=== PATIENT | female | born 1985 | race Caucasian/White ===

== ENCOUNTER → 2016-07-17 | Outpatient (CLI) | payer OTHER ==
[~2016-07-17] MED LIST: ASPCH81X PO; LORA-741 PO; PRENTAB26 PO; SERT100T PO
== END | disposition home or self-care (01) ==
LOC: C.LAB 09:29
PROVIDERS: ATTEND Obstetrics & Gynecology
DX: O09.299 Supervision of pregnancy with other poor reproductive or obstetric history, unspecified trimester (principal)

== ENCOUNTER → 2016-08-01 | Outpatient (CLI) | payer OTHER ==
[2016-08-01 18:58] LABS: URINE APPEARANCE CLEAR (CLEAR); URINE BILIRUBIN NEG (NEG); URINE COLOR YELLOW; URINE NITRITE NEG (NEG); URINE PH 7.5 (4.5-7.5); URINE SPECIFIC GRAVITY 1.021 (1.000-1.030); UROBILINOGEN NEG (NEG)
[2016-08-01 19:11] LABS: MANUAL MICROSCOPIC REQUIRED? NO; REVIEW REQ? NO
== END | disposition home or self-care (01) ==
LOC: C.LAB 17:39
PROVIDERS: ATTEND Obstetrics & Gynecology
DX: R39.9 Unspecified symptoms and signs involving the genitourinary system (principal)

== ENCOUNTER → 2016-08-23 | Outpatient (CLI) | payer OTHER ==
[2016-08-26 23:54] LABS: CHLAMYDIA TRACH RNA*** NOT DETECTED (NOT DETECTED); GC (NEIS GONORRHOEAE)RNA** NOT DETECTED (NOT DETECTED)
== END | disposition home or self-care (01) ==
LOC: C.LABSPEC 17:47
PROVIDERS: ATTEND Obstetrics & Gynecology
DX: O09.41 Supervision of pregnancy with grand multiparity, first trimester (principal); Z3A.00 Weeks of gestation of pregnancy not specified

== ENCOUNTER → 2016-08-23 | Outpatient (CLI) | payer OTHER | END | disposition home or self-care (01) | LOC: C.PAPS 08:40 | PROVIDERS: ATTEND Obstetrics & Gynecology | DX: Z12.4 Encounter for screening for malignant neoplasm of cervix (principal); Z33.1 Pregnant state, incidental ==

== ENCOUNTER → 2016-10-14 | Outpatient (CLI) | payer OTHER ==
[2016-10-16 16:05] LABS: AFP CONCENTRATION 39.7 NG/ML; AFP MULTIPLE OF MEDIAN 1.16; AFPTS GESTATIONAL AGE 16.6 WEEKS; AFPTS INSULIN DEP DIABETIC? NO; AFPTS MATERNAL WT 156 LBS; ALPHA-FETOPROTEIN RACE CAUCASIAN=W; ESTRIOL MULTIPLE OF MEDIAN 1.11; HISTORY OF NTD NO; INHIBIN A 148 PG/ML; REPEAT SAMPLE? NO
== END | disposition home or self-care (01) ==
LOC: C.LAB1850 16:51
PROVIDERS: ATTEND Obstetrics & Gynecology
DX: O09.892 Supervision of other high risk pregnancies, second trimester (principal)

== ENCOUNTER → 2016-10-14 | Outpatient (CLI) | payer OTHER ==
[2016-10-14 10:42] LABS: GTGD 50 Grams
== END | disposition home or self-care (01) ==
LOC: C.LAB 08:19
PROVIDERS: ATTEND Obstetrics & Gynecology
DX: O26.20 Pregnancy care for patient with recurrent pregnancy loss, unspecified trimester (principal)

== ENCOUNTER → 2016-10-18 | Outpatient (CLI) | payer OTHER ==
[2016-10-18 11:49] LABS: URINE APPEARANCE CLEAR (CLEAR); URINE BILIRUBIN NEG (NEG); URINE COLOR YELLOW; URINE NITRITE NEG (NEG); URINE SPECIFIC GRAVITY 1.024 (1.000-1.030); UROBILINOGEN NEG (NEG)
[2016-10-18 11:56] LABS: MANUAL MICROSCOPIC REQUIRED? NO; REVIEW REQ? NO
== END | disposition home or self-care (01) ==
LOC: C.LAB 09:51
PROVIDERS: ATTEND Obstetrics & Gynecology
DX: R39.9 Unspecified symptoms and signs involving the genitourinary system (principal)

== ENCOUNTER → 2016-10-24 | Outpatient (CLI) | payer OTHER ==
--- NOTE | 2016-10-24 16:26 | DIAGNOSTIC IMAGING REPORT ---
VENOUS DOPP LOWER EXT UNILAT CLINICAL HISTORY: M79.89 Right leg [id number] pain. Edema TECHNIQUE: Ultrasound COMPARISON STUDY: None FINDINGS: Normal study IMPRESSION: Normal study Electronically signed by: Jared Nam M.D. 10/24/2016 4:25 PM Dictated Date/Time: 10/24/2016 4:22 PM
== END | disposition home or self-care (01) ==
LOC: C.ULTR 15:26
PROVIDERS: ATTEND Obstetrics & Gynecology
DX: M79.89 Other specified soft tissue disorders (principal)

== ENCOUNTER → 2017-01-07 | Outpatient (CLI) | payer OTHER ==
[2017-01-07 10:17] LABS: GTGD 50 Grams
== END | disposition home or self-care (01) ==
LOC: C.LAB1850 08:29
PROVIDERS: ATTEND Obstetrics & Gynecology
DX: O09.43 Supervision of pregnancy with grand multiparity, third trimester (principal); Z3A.00 Weeks of gestation of pregnancy not specified

== ENCOUNTER 2017-01-28 22:40 | Outpatient (CLI) | payer OTHER ==
[~2017-01-28] VITALS: Ht 165.1 cm; Wt 83.0 kg
[~2017-01-28 22:40] MED LIST changes: -ASPCH81X PO; -PRENTAB26 PO
[2017-01-28 23:15] VITALS: Ht 165.1 cm; Wt 83.0 kg
[2017-01-28] MEDS ORDERED: PRENTAB26 PO (23:15)
[2017-01-28] MEDS ORDERED: ASPCH81X PO (23:15)
== END 2017-01-29 00:40 | disposition home or self-care (01) ==
LOC: C.OPB 22:40 → C.LD 22:40 → C.OPB 01-29 00:40
PROVIDERS: ATTEND Obstetrics & Gynecology
DX: O62.9 Abnormality of forces of labor, unspecified (principal); Z3A.31 31 weeks gestation of pregnancy

== ENCOUNTER → 2017-02-18 | Outpatient (CLI) | payer OTHER ==
[~2017-02-18] MED LIST changes: +ASPCH81X PO; -LORA-741 PO; +PRENTAB26 PO; -SERT100T PO
[2017-02-18 15:37] LABS: BASO % 0.4 %; BASO ABS # 0.04 K/uL (0-0.2); COMPLETE YES; EOS % 0.5 %; HEMATOCRIT 36.2 % (37-47); IG% 0.4 %; LYMPH % 17.3 %; LYMPH ABS # 1.91 K/uL (1.2-3.4); MEAN CELL VOLUME 85.6 fL (80-100); MEAN CORPUSCULAR HEMOGLOBIN 29.1 pg (25-34); MONO % 8.3 %; NEUT % 73.1 %; PLATELET COUNT 318 K/uL (130-400); RED BLOOD COUNT 4.23 M/uL (4.2-5.4); WHITE BLOOD COUNT 11.07 K/uL (4.8-10.8)
[2017-02-18 16:13] LABS: ALT/SGPT 20 U/L (12-78); AST/SGOT 19 U/L (15-37); CREATININE 0.72 mg/dl (0.60-1.20)
== END | disposition home or self-care (01) ==
LOC: C.LAB1850 13:57
PROVIDERS: ATTEND Obstetrics & Gynecology
DX: O09.43 Supervision of pregnancy with grand multiparity, third trimester (principal)

== ENCOUNTER 2017-03-04 15:42 | Inpatient (IN) | payer OTHER ==
[~2017-03-04] VITALS: Ht 165.1 cm; Wt 90.0 kg
[2017-03-04 16:04] VITALS: Ht 165.1 cm; Wt 90.0 kg
[2017-03-04 16:44] LABS: BASO % 0.2 %; BASO ABS # 0.02 K/uL (0-0.2); COMPLETE YES; HEMATOCRIT 35.5 % (37-47); IG% 0.3 %; LYMPH % 15.7 %; LYMPH ABS # 1.41 K/uL (1.2-3.4); MEAN CELL VOLUME 84.5 fL (80-100); MEAN CORPUSCULAR HEMOGLOBIN 28.6 pg (25-34); MEAN CORPUSCULAR HGB CONC 33.8 g/dl (32-36); MEAN PLATELET VOLUME 10.3 fL (7.4-10.4); MONO % 8.7 %; NEUT % 74.1 %; PLATELET COUNT 298 K/uL (130-400); WHITE BLOOD COUNT 8.96 K/uL (4.8-10.8)
[2017-03-04 17:28] LABS: CREATININE 0.87 mg/dl (0.60-1.20); URIC ACID 7.2 mg/dl (2.6-7.2)
[2017-03-04 18:40] LABS: URINE PROTIEN/CREAT RATIO 0.1 (0-0.2); URINE TOTAL PROTEIN 19.2 mg/dl (0-11.9)
[2017-03-04] MEDS ORDERED: OXYTOCIN 30 UNITS/500ML NSS IV PRN (19:30)
[2017-03-04] MEDS ORDERED: CEFAZOLIN IV 2,000 MG in SYRINGE 0 ML IV ONE (19:30)
[2017-03-04] MEDS ORDERED: LACTATED RINGER'S 1000ML 500 ML IV PRN (19:30)
[2017-03-04] MEDS ORDERED: CEFAZOLIN IV 1,000 MG in SYRINGE 0 ML IV PRN (19:30)
[2017-03-04] MEDS ORDERED: MAGNESIUM SULFATE / WTR 1,000 ML IV ONE (19:30)
[2017-03-04] MEDS ORDERED: WTR IV ONE (19:45)
[2017-03-04] MEDS ORDERED: MAGNESIUM SULFATE IV ONE (19:45)
[2017-03-04] MEDS: LACTATED RINGER'S 1000ML 1,000 ML IV SCH (19:59)
[2017-03-04] MEDS: MAGNESIUM SULFATE 40GM / WTR 1000 ML IV SCH (20:59)
[2017-03-05] MEDS ORDERED: ACETAMINOPHEN 325 MG TAB ONE (02:23)
[2017-03-05] MEDS ORDERED: NURSING VERBAL MED ORDER ONE (02:30)
[2017-03-05] MEDS ORDERED: CEFAZOLIN IV 2,000 MG in SYRINGE 0 ML IV ONE (08:00)
[2017-03-05] MEDS: LACTATED RINGER'S 1000ML 1,000 ML IV SCH ×2 (08:49→17:37)
[2017-03-05] MEDS ORDERED: ACETAMINOPHEN 325 MG TAB PO PRN ×2 (11:00→21:45)
[2017-03-05 13:59] LABS: MEAN CELL VOLUME 84.6 fL (80-100); MEAN CORPUSCULAR HGB CONC 34.2 g/dl (32-36); MEAN PLATELET VOLUME 10.4 fL (7.4-10.4); PLATELET COUNT 301 K/uL (130-400); RED BLOOD COUNT 4.49 M/uL (4.2-5.4); WHITE BLOOD COUNT 11.31 K/uL (4.8-10.8)
[2017-03-05] MEDS: MAGNESIUM SULFATE 40GM / WTR 1000 ML IV SCH (15:52)
[2017-03-05] MEDS ORDERED: FENTANYL 2MCG/ML ROPIV 1.25MG/ML 100ML BAG EPI ONE (16:41)
[2017-03-05] MEDS ORDERED: BUPIVACAINE 0.25% 30 ML VIAL ONE (16:41)
[2017-03-05] MEDS ORDERED: FENTANYL CITRATE INJ 50 MCG/1 ML 2 ML VIAL ONE (16:41)
[2017-03-05] MEDS ORDERED: EpHEDrine SULFATE INJ 50 MG/ML AMP ONE (16:41)
[2017-03-05] MEDS ORDERED: LACTATED RINGER'S 1000ML 500 ML IV PRN ×2 (17:04→18:19)
[2017-03-05] MEDS ORDERED: NALOXONE HCL INJ 1 MG in SODIUM CHLORIDE 0.9% 1000ML 1,000 ML IV PRN ×2 (17:04→18:19)
[2017-03-05] MEDS ORDERED: NALBUPHINE HCL INJ 10 MG/ML AMP IV PRN ×2 (17:15→18:30)
[2017-03-05] MEDS ORDERED: FENTANYL 2MCG/ML ROPIV 1.25MG/ML 100ML BAG EPI PRN ×2 (17:15→18:30)
[2017-03-05] MEDS ORDERED: ONDANSETRON INJ 2 MG/ML 2 ML VIAL IV PRN ×2 (17:15→18:30)
[2017-03-05] MEDS ORDERED: EpHEDrine SULFATE INJ 50 MG/ML AMP IV PRN ×2 (17:15→18:30)
[2017-03-05] MEDS ORDERED: NALOXONE HCL INJ 0.4 MG/1 ML VIAL/CARP IV PRN ×2 (17:15→18:30)
[2017-03-05] MEDS ORDERED: DiphenhydrAMINE HCL 50 MG/ML VIAL IV PRN ×2 (17:15→18:30)
[2017-03-05] MEDS ORDERED: PROMETHAZINE HCL INJ 25 MG in SODIUM CHLORIDE 0.9% 50ML 50 ML IV PRN (17:15)
[2017-03-05] MEDS ORDERED: PROMETHAZINE HCL INJ 6.25 MG in SODIUM CHLORIDE 0.9% 50ML 50 ML IV PRN (18:30)
[2017-03-05] MEDS ORDERED: OXYTOCIN 30 UNITS/500ML NSS IV PRN (21:45)
[2017-03-05] MEDS ORDERED: OXYCODONE/ACETAMINOPHEN 5-325 TAB PO PRN (21:45)
[2017-03-05] MEDS ORDERED: MEASLES, MUMPS & RUBELLA VIRUS VIAL SQ. ONE (21:45)
[2017-03-05] MEDS ORDERED: BENZOCAINE 20% AER SPR 82.5 GM CAN EXT PRN (21:45)
[2017-03-05] MEDS ORDERED: HYDROCORTISONE ACETATE 25 MG SUPP PR PRN (21:45)
[2017-03-05] MEDS ORDERED: SUPERCREAM 0.870 % 15GM JAR EXT PRN (21:45)
[2017-03-05] MEDS ORDERED: LANOLIN OINT EXT PRN ×2 (21:45)
[2017-03-05] MEDS ORDERED: DIPHTHERIA/TETANUS/PERTUSSIS 0.5 ML SYR/VIAL IM. ONE (21:45)
--- NOTE | 2017-03-05 21:59 | Anesthesia Procedure Note ---
Anesthesia Epidural Removal Nt Date & Time Mar 05, 2017 at 21:59 Vital Signs Pain Intensity: 0.0 Notes Mental Status: alert / awake / arousable, participated in evaluation Nausea / Vomiting: adequately controlled Pain: adequately controlled Airway Patency, RR, SpO2: stable & adequate BP & HR: stable & adequate Hydration State: stable & adequate Neuraxial Anesthesia: was administered Anesthetic Complications: no major complications apparent, pt satisfied with anesthetic care Epidural: removed without complications, with tip intact
--- NOTE | 2017-03-05 22:27 | DELIVERY SUMMARY ---
DATE OF OPERATION: 03/04/2017 PREOPERATIVE DIAGNOSES: 1. Intrauterine at 36-6/7 weeks. 2. Chronic hypertension with superimposed severe hypertension. POSTOPERATIVE DIAGNOSES: 1. Intrauterine at 36-6/7 weeks. 2. Chronic hypertension with superimposed severe hypertension. 3. Terminal bradycardia. PROCEDURE: 1. Britton bulb for cervical ripening. 2. Pitocin augmentation. 3. Epidural anesthesia. 4. Amniotomy for clear fluid. 5. Vacuum-assisted vaginal delivery. 5. Second-degree perineal laceration and left labial laceration with repair. ANESTHESIA: Epidural. ESTIMATED BLOOD LOSS: 400 mL. DESCRIPTION OF PROCEDURE: The patient was admitted to labor and delivery after having been discovered to have severe blood pressures in the office. Given the severe nature of these blood pressures, magnesium sulfate was started for prophylaxis. It was decided that we will proceed with induction. She underwent a Britton bulb catheter for cervical ripening and the next morning was 3, 50%, -2. The patient progressed slowly, underwent an amniotomy for clear fluid. When she was uncomfortable she underwent an epidural anesthesia. She got Pitocin augmentation and slowly progressed to complete complete and +1 station. She had a severe need to push and so began pushing. heart tones prior to pushing were in the 110s with pushing went to the 90s and after 3 or 4 pushes with good effort, the heart tones dropped into the 60s to 70s. This did not return to baseline or have a response to scalp stim after stimulation so the decision was made to proceed with vacuum assist. The patient was verbally consented. Baby was in EMIGDIO presentation and station was +2 to +3 with application of the vacuum. The vacuum was applied over the contraction with a push. The suction was no greater than 50 mmHg and over 1 popoff and 2 pushes with the same contraction, the vertex was delivered and then the rest of the baby was delivered easily. There was no nuchal cord but there was a short cord. There was immediate cry. The nose and mouth were bulb suctioned. The cord was clamped and cut. The infant was placed on the maternal abdomen for drawing an attention. Cord blood and gas were obtained. Placenta was delivered spontaneously intact with a 3-vessel cord. Cervix, sulci and rectum were examined and found to be intact. A second-degree perineal laceration was repaired with 3-0 Vicryl and left labial laceration was repaired with 4-0 Vicryl in standard fashion. Hemostasis was obtained with dilute Pitocin and fundal massage. Apgars were 8 and 9. Mother doing well at the end of the delivery. Baby needed to be transferred to the nursery for temperature issues. I attest to the content of the Intraoperative Record and any orders documented therein. Any exception s are noted below.
[2017-03-06] VITALS (7 sets, daily range): BP systolic 127–155; BP diastolic 81–96; PULSE 66–91; TEMP 36.6–36.8; O2SAT 96–98
--- NOTE | 2017-03-06 06:36 | OB/GYN Progress Note ---
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 Subjective conversation w/ patient, physical exam, chart review, lab review Ambulation: limited ambulation Voiding: mejía catheter in place Diet Tolerance: Regular Diet Lochia: Small Feeding Type: Breast Feeding Pain: mild pain Review of Systems Constitutional: No fever, No chills Respiratory: No shortness of breath Cardiac: No chest pain Abdomen: No nausea, No vomiting Female : No dysuria Objective Physical Exam General Appearance: WELL-APPEARING Respiratory/Chest: lungs clear, normal breath sounds Cardiovascular: regular rate, rhythm Abdomen: normal bowel sounds, non tender, soft Fundus: Firm, Relation to Umbilicus (2 Fb below) Extremities: non-tender, + pedal edema (1+) Laboratory Results Last 24 Hours Test 03/05/17 13:53 03/06/17 06:29 White Blood Count 11.31 K/uL Red Blood Count 4.49 M/uL Hemoglobin 13.0 g/dL Hematocrit 38.0 % Mean Corpuscular Volume 84.6 fL Mean Corpuscular Hemoglobin 29.0 pg Mean Corpuscular Hemoglobin Concent 34.2 g/dl RDW Standard Deviation 40.4 fL RDW Coefficient of Variation 13.3 % Platelet Count 301 K/uL Mean Platelet Volume 10.4 fL Assessment and Plan Day Number: 1 Continue Routine Care: A/P: This is a 31 y/o female, , s/p normal vaginal delivery w/t vacuum assistance day 1 complicated by severe hypertension. She has not been able to walk to the bathroom and still has a mejía but otherwise doing well. Plan: - Vitals signs are reviewed and WNL (Tmax 36.6 ) - Last Hgb is 13. This AM pending - Blood type O+, GBS not done, Rubella equivocal - Routine care - Encourage ambulation, monitor and control pain with medication as needed, continue with regular diet as tolerated and monitor lochia - Stool softeners and sitz bath recommended - Encourage breast feeding and educate about breast feeding Resident Physician Supervision Note: I interviewed and examined the patient. Discussed with Dr. Dr. Jovel and agree with findings and plan as documented in the note. Any exceptions or clarifications are listed here: Bps have been better, but still slightly elevated. diastolics i 90s. no s/s of pet. Monitor bps closely today. o/w nl pnc. Documented By: Michelle Matos Resident Involvement: Resident Care Provided Care Provided: OB Delivery
[2017-03-06] MEDS: IBUPROFEN 600 MG TAB PO PRN ×3 (06:40→20:17)
[2017-03-06 07:31] LABS: HEMATOCRIT 34.5 % (37-47)
[2017-03-06] MEDS: PRENATAL VITAMIN TAB PO SCH (08:08)
[2017-03-06] MEDS: DOCUSATE SODIUM 100 MG CAP PO SCH ×2 (08:08→20:11)
[2017-03-07 04:25] VITALS: BP 131/82; PULSE 91; TEMP 37; O2SAT 96
--- NOTE | 2017-03-07 06:01 | Discharge Instructions ---
Discharge Instructions Date of Service Mar 07, 2017. Admission Reason for Admission: Severe Preeclampsia Discharge Discharge Diagnosis / Problem: after vaginal delivery Discharge Goals Goal(s): Routine recovery after delivery Medications Continue Dispensed Medications: supercream, dermaplast, tucks, lansinoh Activity Recommendations Activity Limitations: per Instructions/Follow-up section . Instructions / Follow-Up Instructions / Follow-Up ACTIVITY RECOMMENDATIONS: * Gradual return to full activity over the next 2-3 weeks. * No lifting - nothing heavier than baby over the next 2-3 weeks. * Do not engage in vigorous exercise, sexual activity or sports until cleared by your physician. * Do not drive or operate any motorized equipment until cleared by your physician. * You may shower/bathe daily. MEDICATIONS: For discomfort or pain, you may use Acetaminophen (Tylenol), Ibuprofen (Advil), or Naproxen (Aleve) following the package directions. For constipation you may use Colace following the package directions. BREAST CARE: If you are not breast feeding: * Wear a supportive bra 24 hours a day for one to two weeks. * Avoid stimulating your breasts and nipples as much as possible during the first few weeks after delivery. * When taking a shower, have the warm water hit your back, not breasts. * When your breasts feel full, apply ice packs. Usually three to four times a day helps ease the discomfort. * Take a mild pain medication (Tylenol / Motrin) when you are uncomfortable. If breast feeding: * Use breast milk to lubricate nipples. Lansinoh cream may be used for sore nipples. You do not need to remove cream prior to breast feeding. If using a different brand of cream, check the label for directions regarding removal of cream prior to nursing. * Wear a supportive bra. * If having problems with breasts or breast feeding, call a home service consultant or your health care provider. EPISIOTOMY CARE: After delivery, if you have an episiotomy (stitches), the following steps will ease discomfort and aid healing. * For the first 24 hours after delivery, place ice packs next to your episiotomy to help reduce swelling. * After the first 24 hour-period, sitz baths, either portable or in the tub, are suggested. A shower with a shower arm sprayed over the episiotomy may be comforting. * Carla care should be done after each voiding and bowel movement. Squirt warm water from a plastic bottle over the perineum (region of the body between the anus and urinary opening) and pat dry. * Use Dermoplast to ease discomfort. Shake container. [place] directly over the episiotomy. Place a Tucks on a clean sanitary pad next to your episiotomy. SPECIAL CARE INSTRUCTIONS: When you are discharged from the hospital, it is important for you to follow the instructions listed below: * During the first week at home, you should be able to care for yourself and your baby. In addition, the usual light household activities are encouraged. * Limit your activities to the way you feel. Do not try to clean the house or move furniture. Be sensible. * If you actively engage in sports and have done so up until the time of your delivery, you may resume these activities as soon as you feel able. This may take up to one month or even longer. Use good judgment. * Continue to take your vitamins for at least six weeks after the of your baby. * Your diet need not be limited unless you were on a special diet before your delivery. Breast-feeding mothers need around 2500 calories per day and at least 64-80 ounces of fluid per day (8 to 10 glasses). * You should eat foods from the four major food groups. Crash diets or fad diets are to be avoided. Eating lean meats, fresh fruits and vegetables, low-fat dairy products, high fiber foods and a regular exercise program, will help you get back to your pre- weight without putting your health at risk. * Constipation is sometimes a problem after delivery. Take a mild laxative as needed. If breast feeding, Milk of Magnesia is acceptable to use. You may use a suppository or Fleets enema if no episiotomy. * A daily shower or tub bath is suggested. Be sure to thoroughly and gently dry the perineum. * A bloody vaginal discharge will usually continue until around four weeks post . A small amount of bleeding may continue for as long as six weeks. Vaginal discharge changes from the bright red bleeding after delivery to pink then brownish and finally yellowish-pink before becoming white and disappearing. * Bleeding may increase with activity. Your first period may come in 4-8 weeks. If you are breast feeding, your period may be delayed even longer. * [place] (sex) can begin whenever both you and your partner feel comfortable and do not have any form of genital infection. It is recommended that you wait at least six weeks for internal and external healing to occur. If you have questions, please talk to your health care practitioner. A condom should be used to prevent infection and . * Foreplay, gentle intercourse and lubrication is very important the first several times to prevent pain. A water-based lubricant such as K-Y jelly or Astroglide may be used. * If you have RH negative blood and your baby is RH positive, you will receive RHOGAM by injection prior to discharge. The nurse will give you a card to keep with you that has the date and place that you received RHOGAM after delivery. * During your care, you had a Rubella screen done to check for the presence of rubella antibodies in your blood. If your test was negative, you will receive a Rubella vaccine prior to discharge. This vaccine may cause a fever, soreness at the injection site and flu-like symptoms. If these symptoms persist, notify your health care practitioner. is not advised for one month after a Rubella vaccine. * Verbalizes understanding of car seat law as reviewed with patient nursing. * Car Seat hand-out given and reviewed with patient by nursing. * Shaken baby information reviewed with patient by nursing. Call you doctor if: * Heavy bleeding (saturating several pads an hour) or passing clots the size of your fist. * A fever >101 degrees F (38.3 degrees C) on two occasions four hours apart and /or chills. * Unusual pain in the pelvic or vaginal areas. * "Baby Blues" lasting longer than two weeks. If you have any questions or concerns, call your health care practitioner at . FOLLOW UP VISIT: * Please call the office at to schedule a 6 week examination. It is important you keep this appointment. It is important for you to make arrangements for either yearly or twice yearly check-ups thereafter. Current Hospital Diet Patient's current hospital diet: Regular OB Diet Discharge Diet Recommended Diet: Regular Diet Pending Studies Studies pending at discharge: no Medical Emergencies . Who to Call and When: Medical Emergencies: If at any time you feel your situation is an emergency, please call 911 immediately. . 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 . "Provider Documentation" section prepared by Elmira Jovel. . VTE Core Measure Inpt VTE Proph given/why not?: SCD's
[2017-03-07 08:00] VITALS: BP 160/90; PULSE 84; TEMP 36.7; O2SAT 98
[2017-03-07] MEDS: DOCUSATE SODIUM 100 MG CAP PO SCH (08:03)
[2017-03-07] MEDS: PRENATAL VITAMIN TAB PO SCH (08:03)
[2017-03-07] MEDS: IBUPROFEN 600 MG TAB PO PRN ×2 (08:04→16:14)
[2017-03-07 16:00] VITALS: BP 156/91; PULSE 71; TEMP 36.7
[2017-03-07 18:03] VITALS: BP_DIAS 91; PULSE 71; TEMP 36.7
== END 2017-03-07 18:04 | disposition home or self-care (01) | DRG 775 ==
LOC: C.LD 15:42 → C.OPB 15:42 → EEVIPCON 19:32 → C.LD 19:32 → C.OBG 03-06 09:54
PROVIDERS: ADMIT Obstetrics & Gynecology; ATTEND Obstetrics & Gynecology
PROC: 10D07Z6 Extraction of Products of Conception, Vacuum, Via Natural or Artificial Opening (ICD-10-PCS; principal; 2017-03-05)
PROC: 0KQM0ZZ Repair Perineum Muscle, Open Approach (ICD-10-PCS; principal; 2017-03-05)
DX: O16.4 Unspecified maternal hypertension, complicating childbirth (principal); Z3A.36 36 weeks gestation of pregnancy; Z37.0 Single live birth; O70.1 Second degree perineal laceration during delivery

== ENCOUNTER 2019-07-16 15:24 | Observation (INO) ==
[2019-07-16 16:23] LABS: Basophils # (auto) 0.04 K/uL (0-0.2); Basophils % (auto) 0.4 %; Eosinophils # (auto) 0.23 K/uL (0-0.5); Hematocrit (blood only) 32.9 % (37-47); Hemoglobin 10.9 g/dL (12.0-16.0); Immature Granulocytes # (auto) 0.07 K/uL (0.00-0.02); Immature Granulocytes % (auto) 0.6 %; Lymphocytes # (auto) 1.52 K/uL (1.2-3.4); Lymphocytes % (auto) 13.4 %; Mean Corpuscular Hemoglobin 27.5 pg (25-34); Mean Corpuscular Volume 82.9 fL (80-100); Mean Platelet Volume 9.4 fL (7.4-10.4); Monocytes # (auto) 1.01 K/uL (0.11-0.59); Monocytes % (auto) 8.9 %; Neutrophils # (auto) 8.44 K/uL (1.4-6.5); Neutrophils % (auto) 74.7 %; Platelet Count 362 K/uL (130-400); RDW Coefficient of Variation 13.5 % (11.5-14.5); RDW Standard Deviation 41.2 fL (36.4-46.3); Red Blood Count 3.97 M/uL (4.2-5.4); White Blood Count 11.31 K/uL (4.8-10.8)
[2019-07-16 16:26] LABS: Mean Corpuscular Hgb Conc 33.1 g/dL (32-36)
[2019-07-16 16:39] LABS: Alanine Aminotransferase 16 U/L (12-78); Albumin Level 2.6 gm/dl (3.4-5.0); Aspartate Aminotransferase 11 U/L (15-37); Bilirubin Direct < 0.1 mg/dl (0-0.2); Creatinine Clr Calc Pharmacy 130.5 ml/min; Est GFR (African American) 132.3; Est GFR (Non-African American) 114.1
[2019-07-16 16:41] LABS: Alkaline Phosphatase 214 U/L (45-117); Bilirubin,Total 0.2 mg/dl (0.2-1)
--- NOTE | 2019-07-16 16:57 | Obstetrical Progress Note ---
Date of Service July 16, 2019 Assessment & Plan (1) Supervision of normal intrauterine in multigravida: reactive nst (2) History of pre-eclampsia in prior , currently : BPs have been normal during observation. Labs are all normal. No s/s pet. Reviewed s/s. To call with changes. Keep appt on for evaluation. Subjective Patient is a with iup at 36 weeks who was at work today and just feeling poorly. Notes increased swelling. Notes feels more tired. Notes no n/v. Notes some generalized abdominal discomfort. Notes she has some floaters but has had for a couple of weeks. No vision loss. no n/v. +fm. No labor symptoms. Patient has a hx of pet in her two previous pregnancies and so was concerned might be happening. Review of Systems Review of Systems: All systems reviewed & are unremarkable except as noted in HPI & below Physical Exam Constitutional: WD/WN, vitals as above Neck: trachea midline, no thyromegaly Gastrointestinal (Abdomen): soft, nt, nd, gravid, slight ruq discomfort Neurologic: patellar DTR's 2+ bilat, sensation intact no clonus Genitourinary: cx--deferred toco--none efm--reactive nst Results & Data Vital Signs (Past 12 Hours) Vital Signs Temp Pulse Resp BP 07/16/19 16:49 20 07/16/19 16:43 82 109/63 07/16/19 16:30 18 07/16/19 16:28 89 108/62 07/16/19 15:47 36.6 C 20 07/16/19 15:38 91 H 122/84 PG Care Time/CCT Total # of Minutes Spent Total Time Spent with Patient: Total time spent is greater than 50% in coordination of care (as documented) at patient's floor/unit and/or counseling patient: Coding Level of Care Code 20463 Office/Outpt Visit, Est Diagnoses Supervision of normal intrauterine in multigravida Z34.80 History of pre-eclampsia in prior , currently O09.299 CPT Codes NST - 08070 ([id number])
--- NOTE | 2019-07-19 22:33 | Discharge Summary (DS) ---
HISTORY OF PRESENT ILLNESS: The patient is a 6, para 2 with an IUP at 36 weeks who was at work today and just feeling poorly. Notes increased swelling, feels more tired. Notes no nausea or vomiting. Notes some generalized abdominal discomfort. Notes she had some floaters, but has had for a couple weeks. No vision loss, no nausea, vomiting, positive movement, no labor symptoms. The patient has a history of preeclampsia in her 2 previous pregnancies and so she was concerned that this might be happening again. For the rest of the patient's detailed history, please see her obstetrical record. REVIEW OF SYSTEMS: Unremarkable. PHYSICAL EXAMINATION: CONSTITUTIONAL: Well-developed, well-nourished. VITAL SIGNS: As above. NECK: Supple without thyromegaly. GASTROINTESTINAL: Soft, gravid and nontender. Slight right upper quadrant discomfort. NEUROLOGIC: Shows patellar DTRs plus 2/2. No clonus. CERVIX: Deferred. Tocodynamometer shows none. EFM shows a reactive NST. ASSESSMENT: This is a at 36 weeks with a history of 2 previous pregnancies complicated by preeclampsia, who presents with signs and symptoms that might be consistent with. She was observed. Her blood pressures ranged from 122/84 to 108/62. She had laboratory work performed showing H and H 10.9 and 32.9, platelet count of 362,000. Creatinine of 0.68, AST and ALT which were normal. She was monitored for an hour. She had a category 1 strip with a reactive NST. She was not found to have preeclampsia and was discharged home. She has follow up in the office on Friday. KAREN
== END 2019-07-16 17:02 | disposition home or self-care (01) ==
LOC: 4S1 15:24 → OPB 15:24 → 4S1 15:25

== ENCOUNTER 2019-08-05 13:10 | Inpatient (IN) ==
[2019-08-05] MEDS ORDERED: OXYTOCIN 30 UNITS/500 ML BAG IV PRN ×2 (19:39→23:03)
--- NOTE | 2019-08-05 19:43 | History & Physical Report ---
Date of Service August 05, 2019 Assessment & Plan (1) 39 weeks gestation of : (2) Normal labor: has made some slow cervical change management specialist obs and contractions closer and much more painful. Likely early labor. Patient desires admission, epidural, arom. Fetus category one. Anticipate . History of Present Illness Chief Complaint: contractions Primary Care Provider: Joann Yeh DO Patient is a 33yowf with iup at 39 3/9 weeks who presents complaining of contractions. Patient notes over time of obs increasing in pain. no lof/vb. +FM hx of pet in a previous , induction x 2 for pih at term, on asa. labs--O+/ab-/[place]/rprnr/hiv-/hepb-/failed 28 wek gtt, nl 2 hr/gc/ct-/gbs neg/16 week gtt nl Allergies Allergy/AdvReac Type Severity Reaction Status Date / Time Penicillins Allergy Severe HIVES AND Verified 08/03/19 10:13 THROAT TIGHTENS Home Medications Home Medications Medication Instructions Recorded Confirmed Type prenat.vits,lety,jpe-[id number]-[id number] 1 tab PO DAILY 12/23/18 08/05/19 History aspirin 81 mg tablet,delayed 81 mg PO DAILY 06/01/19 08/05/19 History release Patient History Medical History Constipation Depression No chronic diseases present Severe preeclampsia (Resolved) UTI (urinary tract infection) Varicella Varicella vaccination Surgical History S/P dilatation and curettage Family History Sister Diabetes Thyroid disease Breast cancer Mother Diabetes Hypertension Osteoporosis Father Diabetes Heart disease Hypertension Liver disease Grandmother (Paternal) Breast cancer Social History Preferred Language: Arabic Communication Ability: Effective Beliefs That Will Affect Care: None marital status: Current Living Situation: Family Current Living Situation Comment: 11 yo daughter and 2 yo son current occupational status: employed 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[employer] Other Information That Helps Us Care for You: No Feels Safe at Home: Yes Safety Concerns: Feels Safe At This Time Smoking Status: Never smoker Do You Dip or Chew Tobacco: No ; Second Hand Exposure: No ; Tobacco Cessation Education Requested by Patient: No Hx Alcohol Use: No Hx Substance Use: No OB History g1--05/14, sab g2--05/15, blighted ovum g3--06/30--vavd, 39 weeks, 6#10oz, preeclampsia g4--11/17, sab g5--05/26, sab g6--02/25, vavd, 36 weeks, induction for pih [employer]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[employer] History noncontributory Review of Systems All systems reviewed & are unremarkable except as noted in HPI & below Physical Exam Constitutional: WD/WN, vitals as above Gastrointestinal (Abdomen): soft, gravid, nt Psychiatric: A+Ox3, euthymic affect Genitourinary: cx--3-4/80/-2 toco--q2-4min efm--135 with mod vairiablity, accels to 160s, no decels Results & Data Vital Signs (Past 12 Hours) Vital Signs Temp Pulse Resp BP 08/05/19 19:12 90 131/68 08/05/19 19:11 36.6 C 18 08/05/19 15:04 36.6 C 75 18 120/72 08/05/19 13:37 86 126/82 08/05/19 13:32 36.8 C 86 20 126/82 Code Status & VTE Plan VTE Prophylaxis Plan VTE Prophylaxis will be ordered: No Coding Level of Care Code None Diagnoses 39 weeks gestation of Z3A.39 Normal labor O80; Z37.9
[2019-08-05] MEDS: LACTATED RINGER'S 1,000 ML IV PRN ×2 (20:10→21:54)
[2019-08-05 20:13] LABS: Hemoglobin 12.4 g/dL (12.0-16.0); Mean Corpuscular Hemoglobin 27.3 pg (25-34); Mean Corpuscular Volume 81.5 fL (80-100); Mean Platelet Volume 9.4 fL (7.4-10.4); Platelet Count 408 K/uL (130-400); RDW Coefficient of Variation 13.8 % (11.5-14.5); RDW Standard Deviation 40.9 fL (36.4-46.3); Red Blood Count 4.54 M/uL (4.2-5.4); White Blood Count 15.16 K/uL (4.8-10.8)
[2019-08-05 20:16] LABS: Mean Corpuscular Hgb Conc 33.5 g/dL (32-36)
[2019-08-05] MEDS ORDERED: ePHEDrine sulfate 50 MG/ML AMP ONE (20:25)
[2019-08-05] MEDS ORDERED: fentaNYL citrate 100 MCG/2 ML VIAL ONE (20:26)
[2019-08-05] MEDS ORDERED: fentaNYL 2MCG/ML ROPIV 1.25MG/ML 100 ML BAG EPI ONE (20:26)
[2019-08-05] MEDS ORDERED: BUPIVACAINE 0.25% 30 ML VIAL ONE (20:26)
[2019-08-05] MEDS ORDERED: NALBUPHINE HCL INJ 10 MG/ML AMP IV PRN (21:25)
[2019-08-05] MEDS ORDERED: NALOXONE HCL 0.4 MG/1 ML VIAL/CARP IV PRN (21:25)
[2019-08-05] MEDS ORDERED: fentaNYL 2MCG/ML ROPIV 1.25MG/ML 100 ML BAG EPI PRN (21:25)
[2019-08-05] MEDS ORDERED: ONDANSETRON INJ 2 MG/ML 2 ML VIAL IV PRN (21:25)
[2019-08-05] MEDS ORDERED: NALOXONE HCL 1 MG in SODIUM CHLORIDE 0.9% 1000ML 1,000 ML IV PRN (21:25)
[2019-08-05] MEDS ORDERED: ePHEDrine sulfate 50 MG/ML AMP IV PRN (21:25)
[2019-08-05] MEDS ORDERED: PROMETHAZINE HCL 6.25 MG in SODIUM CHLORIDE 0.9% 50 ML IV PRN (21:25)
[2019-08-05] MEDS ORDERED: DiphenhydrAMINE HCL 50 MG/ML VIAL IV PRN (21:25)
--- NOTE | 2019-08-05 21:25 | Anesthesiology Consultation ---
Date of Service August 05, 2019 Assessment & Plan Chart Review Chart Review: Patient NOT seen in Pre Admission Testing and Acceptable Risk for Labor Epidural Consults Requested none ASA ASA2 Proposed Anesthesia Anesthesia Type: Labor Epidural Risk / Benefits Reviewed With: PT / POA / Parent / Guardian, Accepts Plan and Informed Consent Obtained History Height/Weight Height: 5 ft 4 in Weight: 96.162 kg Allergies Allergy/AdvReac Type Severity Reaction Status Date / Time Penicillins Allergy Severe HIVES AND Verified 08/03/19 10:13 THROAT TIGHTENS Medications Home Medications Medication Instructions Recorded Confirmed Last Taken prenat.vits,lety,[id number]-[id number]-pgxfz 1 tab PO DAILY 12/23/18 08/05/19 08/05/19 07:30 aspirin 81 mg tablet,delayed 81 mg PO DAILY 06/01/19 08/05/19 08/05/19 07:30 release Active Medications Generic Name Dose Route Start Last Admin Trade Name Freq PRN Reason Stop Dose Admin Lactated Ringer's 1,000 mls @ 125 mls/hr 08/05/19 19:39 08/05/19 21:15 Lr IV 08/07/19 19:38 999 mls/hr .Q8H PRN Infusion L&D Protocol Protocol NPO Date Last Intake of Fluids: 08/05/19 Time Last Intake of Fluids: 12:00 Date Last Intake of Solids: 08/05/19 Time Last Intake of Solids: 12:00 Past Medical History Medical History Constipation Depression No chronic diseases present Severe preeclampsia (Resolved) UTI (urinary tract infection) Varicella Varicella vaccination Exercise / Class Metabolic Activity II 4-5 Yardwork/Stairs/Walk up hill Past Family History Family History Sister Diabetes Thyroid disease Breast cancer Mother Diabetes Hypertension Osteoporosis Father Diabetes Heart disease Hypertension Liver disease Grandmother (Paternal) Breast cancer Past Surgical History Surgical History S/P dilatation and curettage Past Anesthesia History No Hx of Anesthesia Complications and No Family Hx of Anesthesia Complications History of PONV No Hx of PONV and No Hx of Motion Sickness Social History Smoking Status: Never smoker Do You Dip or Chew Tobacco: No Hx Alcohol Use: No Hx Substance Use: No substance use type: does not use Physical Exam Vital Signs Last Vital Signs Temp 36.6 C 08/05/19 19:11 Pulse 87 08/05/19 21:22 Resp 18 08/05/19 19:11 BP 112/65 08/05/19 21:22 Pulse Ox 98 08/05/19 21:22 ENMT Mouth: no dentition abnormality Thyromental Distance: > or= 3.5 Finger Breadths Mallampati Class: II Neck normal visual inspection Respiratory normal respiratory effort Auscultation: lungs clear to auscultation bilaterally Cardiovascular Rate/Rhythm: regular rate and regular rhythm Psychiatric Orientation: alert Testing Laboratory Results 08/05/19 20:02
--- NOTE | 2019-08-05 22:30 | Labor Progress Brief Note ---
Date of Service August 05, 2019 Subjective comfortable Assessment & Plan (1) Normal labor: arom and expectant mangement. fetus reassuring. anticipate . Physical Exam Constitutional: WD/WN, vitals as above Psychiatric: A+Ox3, euthymic affect Genitourinary: cx--4-5/90/-2 arom--clear toco--q2-4min efm--150s with mod variability, accels to 170s, no decels Results & Data Vital Signs (Past 12 Hours) Vital Signs Temp Pulse Resp BP Pulse Ox 08/05/19 22:25 97 H 128/83 08/05/19 22:22 92 H 97 08/05/19 22:17 95 H 98 08/05/19 22:12 110 H 97 08/05/19 22:09 105 H 110/70 08/05/19 22:07 94 H 97 08/05/19 22:02 94 H 99 08/05/19 21:57 95 H 97 08/05/19 21:55 88 18 115/75 08/05/19 21:52 105 H 99 08/05/19 21:50 109 H 18 116/72 08/05/19 21:47 107 H 97 08/05/19 21:45 110 H 18 120/76 08/05/19 21:42 78 99 08/05/19 21:40 80 20 122/72 08/05/19 21:37 81 99 08/05/19 21:36 92 H 118/69 08/05/19 21:35 18 08/05/19 21:32 87 99 08/05/19 21:30 94 H 116/70 08/05/19 21:29 18 08/05/19 21:27 105 H 97 08/05/19 21:24 94 H 18 121/71 08/05/19 21:22 87 18 112/65 98 08/05/19 21:20 78 18 128/65 08/05/19 21:18 65 16 91/50 L 08/05/19 21:17 64 98 08/05/19 21:16 69 16 94/53 L 08/05/19 21:14 72 16 91/53 L 92 08/05/19 21:12 108 H 18 116/59 L 99 08/05/19 21:10 107 H 16 125/58 L 08/05/19 21:08 93 H 16 118/60 08/05/19 21:07 92 H 99 08/05/19 21:05 89 138/71 08/05/19 21:02 86 100 08/05/19 20:57 88 100 08/05/19 20:52 88 99 08/05/19 19:12 90 131/68 08/05/19 19:11 36.6 C 18 08/05/19 15:04 36.6 C 75 18 120/72 08/05/19 13:37 86 126/82 08/05/19 13:32 36.8 C 86 20 126/82 Coding Level of Care Code None Diagnoses Normal labor O80; Z37.9
[2019-08-06] MEDS ORDERED: OXYTOCIN 30 UNITS/500 ML BAG IV PRN (00:52)
[2019-08-06] MEDS ORDERED: ACETAMINOPHEN 325 MG TAB PO PRN (00:52)
--- NOTE | 2019-08-06 00:56 | Delivery Summary ---
Vaginal Delivery Summary Date of Service August 06, 2019 Vaginal Delivery Summary Pre-operative Diagnosis: at 39 weeks labor Post-operative Diagnosis: same Procedure: epidural arom second degree laceration repair EBL: 350cc Anesthesia: epidural Procedure: The patient pushed for 3 contractions to deliver a viable female infant in tali position. The nose and mouth were bulb suctioned on the perineum and the rest of the infant was then delivered without difficulty. Nuchal cord x 1 reduced easily. The baby was vigorous. The nose and mouth were again bulb suctioned and the was placed in the maternal abdomen for drying and attention. Cord was clamped and cut at one minute of life. Cord blood and segment obtained. Placenta delivered spontaneous, intact with a three vessel cord. Cervix/sulci/rectum were intact. A second degree perineal laceration was repaired in the normal standard fashion. Hemostasis obtained with dilute pitocin and fundal massage. Apgars were 8/9. Mother and baby doing well at the end of the delivery. [facility] Vaginal Delivery Charge Vaginal Delivery Codes: 42217 global code for the antepartum, delivery, and post-
[2019-08-06] MEDS ORDERED: HYDROCORTISONE ACETATE 25 MG SUPP PR PRN (01:59)
[2019-08-06] MEDS ORDERED: DIPHTHERIA/TETANUS/PERTUSSIS 0.5 ML SYR/VIAL IM ONE (01:59)
[2019-08-06] MEDS ORDERED: bisacodyL 10 MG SUPP PR PRN (01:59)
[2019-08-06] MEDS ORDERED: BENZOCAINE 20% AER SPR 82.5 GM CAN EXT PRN (01:59)
[2019-08-06] MEDS ORDERED: OXYCODONE/ACETAMINOPHEN 5mg/325mg TAB PO PRN (01:59)
[2019-08-06] MEDS ORDERED: SUPERCREAM 0.870% 15 GM JAR EXT PRN (01:59)
--- NOTE | 2019-08-06 07:29 | Anesthesia Procedure Note ---
Date of Service August 06, 2019 Anesthesia Post Epidural Note Vital Signs Vital Signs: Temp Pulse Resp BP Pulse Ox 36.8 C 97 H 16 108/71 100 08/06/19 04:25 08/06/19 04:25 08/06/19 04:25 08/06/19 04:08/06/19 00:42 Pain Intensity Buttock: Pain Intensity: 2 Notes Mental Status: alert / awake / arousable and participated in evaluation Nausea / Vomiting: adequately controlled Pain: adequately controlled Airway Patency, RR, SpO2: stable & adequate BP & HR: stable & adequate Hydration State: stable & adequate Neuraxial Anesthesia: was administered and sensory block is resolving Anesthetic Complications: no major complications apparent and Pt Satisfied with anesthetic care Epidural: Removed without complications and With tip intact Notes: Epidural site clean, dry and intact. No signs of edema, erythema or bruising at insertion site. Pt instructed to request anesthesia if she has residual lower extremity numbness or if she develops lower extremity pain or weakness, back pain or headache.
[2019-08-06] MEDS: IBUPROFEN 600 MG TAB PO PRN ×3 (08:06→20:13)
[2019-08-06] MEDS: DOCUSATE SODIUM 100 MG CAP PO SCH ×2 (08:06→20:13)
[2019-08-06] MEDS: PRENATAL VITAMIN 1 TAB PO SCH (08:06)
[2019-08-07 06:42] LABS: Hematocrit (blood only) 33.1 % (37-47); Hemoglobin 10.8 g/dL (12.0-16.0)
--- NOTE | 2019-08-07 07:49 | Obstetrical Progress Note ---
Date of Service August 07, 2019 Assessment & Plan (1) Vaginal delivery: Wants d/c home today, instructions reviewed. Subjective Ambulation: ambulating normally Voiding: no voiding problems Passing Gas:: Yes Diet Tolerance:: regular diet Lochia:: Small Feeding Type:: breast feeding Physical Exam Constitutional WD/WN, vitals as above Eyes PERRL, conjunctivae normal, anicteric sclerae Neck normal visual inspection Respiratory normal respiratory effort and able to speak in complete sentences; no respiratory distress and no labored breathing Cardiovascular Rate/Rhythm: regular rate and regular rhythm Extremities: no edema Chest (Breasts) Chest: normal inspection of chest Gastrointestinal (Abdomen) Inspection/Auscultation: abdomen normal to inspection Soft, postgravid Psychiatric A+Ox3, euthymic affect Genitourinary OB Exam Abdomen: + fundal height Fundus: + firm and + relation to umbilicus (fundus just below umbilicus); not tender Results & Data Vital Signs (Past 12 Hours) Vital Signs Temp Pulse Resp BP 08/07/19 00:00 98.2 F 76 18 121/75 08/06/19 20:30 97.9 F 62 16 104/71
[2019-08-07] MEDS: PRENATAL VITAMIN 1 TAB PO SCH (07:56)
[2019-08-07] MEDS: DOCUSATE SODIUM 100 MG CAP PO SCH (07:56)
[2019-08-07] MEDS: IBUPROFEN 600 MG TAB PO PRN (07:56)
[2019-08-07] MEDS ORDERED: bisacodyL 5 MG TABEC PO SCH (20:00)
== END 2019-08-07 10:00 | disposition home or self-care (01) | DRG 807 ==
LOC: OPB 13:10 → 4S1 13:10 → 4S2 08-06 03:00

== ENCOUNTER 2022-02-21 07:38 | Inpatient (IN) ==
[2022-02-21] MEDS ORDERED: OXYTOCIN 30 UNITS/500 ML BAG IV PRN ×3 (07:50→22:07)
[2022-02-21] MEDS ORDERED: LIDOCAINE 1% LOCAL 20 ML VIAL INFIL PRN (07:50)
[2022-02-21 08:16] LABS: Hematocrit (blood only) 35.8 % (34.1-44.9); Hemoglobin 11.6 g/dl (12.0-16.0); Mean Corpuscular Hemoglobin 26.4 pg (25.0-34.0); Mean Corpuscular Hgb Conc 32.4 g/dL (32.0-36.0); Mean Corpuscular Volume 81.4 fL (80.0-100.0); Mean Platelet Volume 9.5 fL (9.4-12.3); Platelet Count 341 K/uL (130-400); RDW Coefficient of Variation 13.9 % (11.5-14.5); RDW Standard Deviation 40.6 fL (36.4-46.3); White Blood Count 9.75 K/ul (4.8-10.8)
[2022-02-21] MEDS ORDERED: SODIUM CHLORIDE 0.9% 250 ML IV PRN (08:58)
[2022-02-21] MEDS: LACTATED RINGER'S 1,000 ML IV PRN ×3 (09:22→19:13)
--- NOTE | 2022-02-21 10:22 | History & Physical Report ---
Date of Service February 21, 2022 Assessment & Plan (1) Supervision of elderly multigravida: Plan: Multiparous female at 39 weeks with request for IOL because of prior history of PIH cervical balloon attempted - even though it would not stay in place, there was some cervical change noted pitocing augmentation has begun epidural analgesia when requested anticipate vaginal Admission and Anticipated Discharge Date Admission Date: February 21, 2022 History of Present Illness Primary Care Provider: Esa Lundberg Patient is a 36 yo female [facility] 02/28/22 who presents at 39 weeks for IOL because of prior history of PIH with all 3 of her full term pregnancies. complicated by AMA. GBS-negative. testing has all been reassuring. Allergies Allergy/AdvReac Type Severity Reaction Status Date / Time Penicillins Allergy Severe Hives, Verified 02/20/22 15:20 throat tightening nickel Allergy Mild Itchiness, Verified 02/20/22 15:20 "sensitivity" with contact Home Medications Medication Instructions Recorded Confirmed Type prenat.vits,lety,hhq-[id number] 1 tab PO DAILY 07/26/21 02/21/22 History metoclopramide HCl 10 mg tablet 10 mg PO Q6H PRN nausea and 02/12/22 02/21/22 Rx (Reglan) vomiting #14 tabs acetaminophen 325 mg capsule 325 mg PO QID PRN Headache 02/21/22 02/21/22 History (Tylenol) Patient History Medical History Anxiety and depression Controlled Blighted ovum Depression Depressive disorder History of COVID-19 Covid positive 10/04/21 ([facility]; [facility] Now) Symptoms at time: joint pain, cough x weeks > resolved History of pre-eclampsia x2 Surgical History (Updated 02/21/22 @ 07:47 by Lydia Ceballos RN) History of anesthesia complications History of anesthesia reaction Anxious/crying with anesthesia emergence (2008)- D&C, versed used per pt No similar issues with other surgeries/anesthesia, Pt. states she had syncopal episode with epidurals x2 S/P dilatation and curettage Multiple D&E (12/07/20): LMA#4 at [facility]. No issues noted per post-op anesthesia progress note. Family History Sister Diabetes Thyroid disease Breast cancer Mother Diabetes Hypertension Osteoporosis Father Diabetes Heart disease Hypertension Liver disease Grandmother (Paternal) Breast cancer Social History (Updated 02/21/22 @ 07:50 by Lydia Ceballos, RN) Smoking Status: Never smoker Second Hand Exposure: No; Hx Alcohol Use: No Hx Substance Use: No Preferred Language: Urdu Communication Ability: Effective Hearing Ability: Normal Testing And Regulating Technician Required: No Beliefs That Will Affect Care: None marital status: Legally marital status details: Conrad Riggs [phone] Current Living Situation: Alone Current Living Situation Comment: with her 3 kids; had PFA against FOB but not current; Has emergency custody current occupational status: employed current occupation: [employer] [facility] Other Information That Helps Us Care for You: No Feels Safe at Home: Yes Safety Concerns: Feels Safe At This Time Gender Identity: Female Assistive Devices: None Review of Systems All systems reviewed & are unremarkable except as noted in HPI & below Physical Exam Psychiatric: A+Ox3, euthymic affect Genitourinary: OB Exam Abdomen: + vertex, + estimated weight (6-7 pounds) and + irregular contractions Manual OB Exam: + cervical dilation 1 cm (1-2 cm), + cervical effacement 50% (soft) and + station high (-3) OB Exam Monitor Tracing: + external FHT monitor used, + external uterine monitor used, + category I and + normal FHT variability cervical balloon insertion attempted 3 times but balloon was expelled after instilling 30cc of water. exam after the balloon insertion attempts is now 3cm/60/-3 Results & Data ([facility]) Vital Signs (Past 12 Hours) Vital Signs Temp Pulse Resp BP 02/21/22 10:10 78 139/80 02/21/22 09:55 75 127/80 02/21/22 09:40 78 20 126/69 02/21/22 07:44 98.1 F 110 H 20 126/67 Coding Level of Care Code None Diagnoses Supervision of elderly multigravida O09.529
[2022-02-21] MEDS ORDERED: ePHEDrine sulfate 50 MG/ML AMP ONE (15:31)
[2022-02-21] MEDS ORDERED: BUPIVACAINE 0.25% 30 ML VIAL ONE (15:32)
[2022-02-21] MEDS ORDERED: SODIUM CHLORIDE 0.9% INJ 10 ML VIAL ONE (15:32)
[2022-02-21] MEDS ORDERED: fentaNYL 2MCG/ML ROPIVACAINE 1.25MG/ML 100 ML BAG EPI ONE (15:32)
[2022-02-21] MEDS ORDERED: fentaNYL citrate 100 MCG/2 ML VIAL ONE (15:32)
[2022-02-21] MEDS ORDERED: LIDOCAINE 2%/EPINEPHRINE 1:200,000 20 ML SDV ONE (15:32)
--- NOTE | 2022-02-21 15:33 | Anesthesiology Consultation ---
Date of Service February 21, 2022 Assessment & Plan Chart Review Chart Review: Acceptable Risk for Labor Epidural Consults Requested none ASA ASA2 Proposed Anesthesia Anesthesia Type: Labor Epidural Risk / Benefits Reviewed With: PT / POA / Parent / Guardian, Accepts Plan and Informed Consent Obtained History Height/Weight Height: 5 ft 4 in Weight: 102.784 kg Allergies Allergy/AdvReac Type Severity Reaction Status Date / Time Penicillins Allergy Severe Hives, Verified 02/20/22 15:20 throat tightening nickel Allergy Mild Itchiness, Verified 02/20/22 15:20 "sensitivity" with contact Medications Home Medications Medication Instructions Recorded Confirmed Last Taken prenat.vits,lety,mjx-lgwo-tvxdl 1 tab PO DAILY 07/26/21 02/21/22 02/20/22 09:00 metoclopramide HCl 10 mg tablet 10 mg PO Q6H PRN nausea and 02/12/22 02/21/22 02/14/22 21:00 (Reglan) vomiting #14 tabs acetaminophen 325 mg capsule 325 mg PO QID PRN Headache 02/21/22 02/21/22 02/15/22 21:00 (Tylenol) Active Medications Generic Name Dose Route Start Last Admin Trade Name Freq PRN Reason Stop Dose Admin Oxytocin 30 units in 500 mls @ 13 mls/hr 02/21/22 07:50 02/21/22 14:30 Pitocin IV 02/23/22 07:49 0.78 units/hr .Q24H PRN 13 mls/hr Labor Induction/Augmentation Titration Protocol 0.78 UNITS/HR Lactated Ringer's 1,000 mls @ 125 mls/hr 02/21/22 07:50 02/21/22 15:15 Lr IV 02/23/22 07:49 999 mls/hr .Q8H PRN Infusion L&D Protocol Protocol Past Medical History Medical History Anxiety and depression Controlled Blighted ovum Depression Depressive disorder History of COVID-19 Covid positive 10/04/21 ([facility]; ID Now) Symptoms at time: joint pain, cough x weeks > resolved History of pre-eclampsia x2 Exercise / Class Metabolic Activity II 4-5 Yardwork/Stairs/Walk up hill Past Family History Family History Sister Diabetes Thyroid disease Breast cancer Mother Diabetes Hypertension Osteoporosis Father Diabetes Heart disease Hypertension Liver disease Grandmother (Paternal) Breast cancer Past Surgical History Surgical History History of anesthesia complications History of anesthesia reaction Anxious/crying with anesthesia emergence (2008)- D&C, versed used per pt No similar issues with other surgeries/anesthesia, Pt. states she had syncopal episode with epidurals x2 S/P dilatation and curettage Multiple D&E (12/07/20): LMA#4 at [facility]. No issues noted per post-op anesthesia progress note. Past Anesthesia History No Hx of Anesthesia Complications and No Family Hx of Anesthesia Complications History of PONV No Hx of PONV and No Hx of Motion Sickness Social History Smoking Status: Never smoker Hx Alcohol Use: No Hx Substance Use: No substance use type: does not use Physical Exam Vital Signs Last Vital Signs Temp 98.1 F 02/21/22 11:55 Pulse 75 02/21/22 15:05 Resp 20 02/21/22 11:55 BP 126/70 02/21/22 15:05 ENMT Mouth: no dentition abnormality Thyromental Distance: > or= 3.5 Finger Breadths Mallampati Class: II Neck normal visual inspection Respiratory normal respiratory effort Auscultation: lungs clear to auscultation bilaterally Cardiovascular Rate/Rhythm: regular rate and regular rhythm Testing Laboratory Results 02/21/22 08:06 Blood Type O Positive 02/21/22 08:06 Antibody Screen NEGATIVE 02/21/22 08:06
[2022-02-21] MEDS ORDERED: ePHEDrine sulfate 50 MG/ML AMP IV PRN (16:05)
[2022-02-21] MEDS ORDERED: NALBUPHINE HCL INJ 10 MG/ML AMP IV PRN (16:05)
[2022-02-21] MEDS ORDERED: NALOXONE HCL 1 MG in SODIUM CHLORIDE 0.9% 1000ML 1,000 ML IV PRN (16:05)
[2022-02-21] MEDS ORDERED: fentaNYL 2MCG/ML ROPIVACAINE 1.25MG/ML 100 ML BAG EPI PRN (16:05)
[2022-02-21] MEDS ORDERED: ONDANSETRON INJ 2 MG/ML 2 ML VIAL IV PRN (16:05)
[2022-02-21] MEDS ORDERED: diphenhydrAMINE 50 MG/ML VIAL IV PRN (16:05)
[2022-02-21] MEDS ORDERED: NALOXONE HCL 0.4 MG/1 ML VIAL/CARP IV PRN (16:05)
[2022-02-21] MEDS ORDERED: NURSING L&D Epidural Breakthrough Pain Update ONE (21:11)
[2022-02-21] MEDS ORDERED: oxyCODONE/ACETAMINOPHEN 5mg/325mg TAB PO PRN (22:07)
[2022-02-21] MEDS ORDERED: DIPHTHERIA/TETANUS/PERTUSSIS 0.5 ML SYR/VIAL IM ONE (22:07)
[2022-02-21] MEDS ORDERED: BENZOCAINE 20% AER SPR 82.5 GM CAN EXT PRN (22:07)
[2022-02-21] MEDS ORDERED: ACETAMINOPHEN 325 MG TAB PO PRN (22:07)
[2022-02-21] MEDS ORDERED: HYDROCORTISONE ACETATE 25 MG SUPP PR PRN (22:07)
--- NOTE | 2022-02-21 22:28 | Anesthesia Procedure Note ---
Date of Service February 21, 2022 Anesthesia Post Epidural Note Vital Signs Vital Signs: Temp Pulse Resp BP Pulse Ox 98.1 F 93 H 18 142/69 H 98 02/21/22 21:00 02/21/22 22:15 02/21/22 21:00 02/21/22 22:15 02/21/22 22:06 Pain Intensity Abdomen: Pain Intensity: 0 Notes Mental Status: alert / awake / arousable and participated in evaluation Nausea / Vomiting: adequately controlled Pain: adequately controlled Airway Patency, RR, SpO2: stable & adequate BP & HR: stable & adequate Hydration State: stable & adequate Neuraxial Anesthesia: was administered and sensory block is resolving Anesthetic Complications: no major complications apparent and Pt Satisfied with anesthetic care Epidural: Removed without complications and With tip intact
--- NOTE | 2022-02-21 22:35 | Delivery Summary ---
Vaginal Delivery Summary Date of Service February 21, 2022 Vaginal Delivery Summary and 1st Degree LAC Patient is a 36-year-old 10 para 3-0-6-3 female who presents at 39 weeks for induction of labor because of prior preeclampsia at term. A cervical balloon was placed but was immediately expelled after it was placed. Pitocin was then started to augment her labor. Membranes were ruptured for clear fluid. She received effective epidural analgesia. She progressed to full dilation with the urge to push. She pushed effectively over intact perineum for delivery of a viable female infant. After the head was delivered there was a loose nuchal cord which was reduced. The rest the infant delivered easily without maternal effort. The infant was placed on the mother's abdomen for further attention and drying she was vigorous and moving all 4 limbs. After 1 minute the cord was clamped and cut. The placenta was expressed intact with a three- vessel cord after obtaining cord blood. A first-degree perineal laceration was repaired with 3-0 chromic in the usual fashion. bleeding was controlled with dilute Pitocin and fundal massage. At the end of the repair her bladder was straight cathed for approximately 50 cc of clear urine. Mother and infant were doing well after delivery. [facility] [place] Vag[place] Delivery Charge Delivery Type Details: and 1st Degree LAC
[2022-02-22] MEDS: IBUPROFEN 600 MG TAB PO PRN ×4 (03:18→18:41)
--- NOTE | 2022-02-22 06:16 | Obstetrical Progress Note ---
Date of Service <Erum BellDO lala - Last Filed: 02/22/22 06:46> February 22, 2022 Assessment & Plan <Erum ValadezDO - Last Filed: 02/22/22 06:46> (1) care following vaginal delivery: Patient is PPD 1 s/p and doing well. - Eating well, voiding well, ambulating well - Vitals reviewed and within normal limits - Pain well controlled with analgesics - OOB, ambulation, diet progression as tolerated - Blood type: O+, GBS neg, rubella immune - Plan to discharge tomorrow AM - After discharge, 6 [address] follow up with Dr. Ponce <Ariadna Lara MD, FACOG - Last Filed: 02/22/22 09:03> (1) care following vaginal delivery: Subjective <Erum BellDO lala - Last Filed: 02/22/22 06:46> Patient is a 36 yo female who is now PPD #1 following spontaneous vaginal delivery at 39 weeks. Reports feeling well this morning. She denies abdominal cramping with minimal well managed on analgesics. Voiding without issue. Tolerating regular meals overnight and able to ambulate some. She has passed gas with no bowel movements. Persistent lochia with some improvement this morning. Currently breast feeding. Review of Systems Denies fever, chills, sweats. Denies SOB, difficulty breathing, chest pain, palpitations, and chest pressure. Denies breast pain. Denies dysuria. Denies headache or changes in vision. Physical Exam <Erum BellDO lala - Last Filed: 02/22/22 06:46> General: Alert and oriented. No acute distress. CV: Regular rate and rhythm. No murmurs. Respiratory: CTA bilaterally. No rhonchi, wheezes, or crackles. No increased work of breathing. Abdomen: Positive bowel sounds. Soft, nontender, non distended. Uterus: Fundus firm and palpable 2 cm below the umbilicus. Lower extremities: No LE edema. No deep calf pain. Roberto's negative bilaterally. Results & Data ([facility]) <Erum KhanLeanne Valadez DO - Last Filed: 02/22/22 06:46> Vital Signs (Past 12 Hours) Vital Signs Temp Pulse Pulse Resp BP BP Pulse Ox 02/22/22 04:49 36.8 C 72 18 124/82 95 02/22/22 03:21 36.8 C 79 16 126/80 96 02/22/22 01:25 37.2 C 75 16 132/75 92 02/22/22 00:30 18 02/21/22 23:00 18 02/21/22 22:45 18 02/21/22 22:30 18 02/21/22 22:15 18 02/21/22 23:30 18 02/21/22 22:00 18 02/21/22 19:15 36.7 C 18 02/21/22 23:30 100 H 112/64 02/21/22 23:15 89 119/69 02/21/22 23:00 103 H 118/69 02/21/22 22:45 83 146/87 H 02/21/22 22:30 87 132/58 L 02/21/22 22:15 93 H 142/69 H 02/21/22 22:06 93 H 98 02/21/22 22:01 92 H 98 02/21/22 22:00 90 141/65 H 02/21/22 21:56 97 H 97 02/21/22 21:51 94 H 98 02/21/22 21:46 113 H 96 02/21/22 21:41 128 H 99 02/21/22 21:38 117 H 94 02/21/22 21:36 119 H 99 02/21/22 21:31 99 02/21/22 21:31 105 H 02/21/22 21:31 108 H 90 02/21/22 21:30 113 H 123/59 L 02/21/22 21:26 107 H 100 02/21/22 21:23 101 H 90 02/21/22 21:21 101 H 97 02/21/22 21:17 97 H 134/67 02/21/22 21:16 105 H 97 02/21/22 21:11 95 H 100 02/21/22 21:06 99 H 100 02/21/22 21:01 83 100 02/21/22 21:00 36.7 C 109 H 18 149/91 H 02/21/22 20:56 89 98 02/21/22 20:51 85 97 02/21/22 20:46 83 98 02/21/22 20:45 89 139/75 02/21/22 20:41 86 98 02/21/22 20:36 83 97 02/21/22 20:31 89 98 02/21/22 20:30 86 137/71 02/21/22 20:26 84 98 02/21/22 20:21 82 99 02/21/22 20:16 117 H 99 02/21/22 20:11 78 97 02/21/22 20:06 78 96 02/21/22 20:01 97 02/21/22 20:01 79 02/21/22 20:01 82 121/59 L 02/21/22 19:56 84 96 02/21/22 19:51 80 97 02/21/22 19:46 76 132/68 96 02/21/22 19:41 82 97 02/21/22 19:40 82 94 02/21/22 19:36 88 96 02/21/22 19:31 97 02/21/22 19:31 84 02/21/22 19:31 83 124/73 02/21/22 19:26 83 97 02/21/22 19:21 80 96 02/21/22 19:16 98 02/21/22 19:16 76 02/21/22 19:16 78 129/80 02/21/22 19:11 79 97 02/21/22 19:06 78 98 02/21/22 19:01 99 02/21/22 19:01 74 02/21/22 19:01 75 120/63 02/21/22 18:56 83 98 02/21/22 18:51 76 99 02/21/22 18:46 99 02/21/22 18:46 79 02/21/22 18:46 75 128/69 02/21/22 18:41 81 97 02/21/22 18:36 72 98 02/21/22 18:31 74 118/55 L 98 02/21/22 18:26 80 98 02/21/22 18:21 81 98 02/21/22 18:16 77 99 O2 Del Method 02/22/22 04:49 Room Air 02/22/22 03:21 Room Air 02/22/22 01:25 Room Air 02/22/22 00:30 02/21/22 23:00 02/21/22 22:45 02/21/22 22:30 10/13/22 22:15 02/21/22 23:30 02/21/22 22:00 02/21/22 19:15 02/21/22 23:30 02/21/22 23:15 02/21/22 23:00 02/21/22 22:45 02/21/22 22:30 02/21/22 22:15 02/21/22 22:06 02/21/22 22:01 02/21/22 22:00 02/21/22 21:56 02/21/22 21:51 02/21/22 21:46 02/21/22 21:41 02/21/22 21:38 02/21/22 21:36 02/21/22 21:31 02/21/22 21:31 02/21/22 21:31 02/21/22 21:30 02/21/22 21:26 02/21/22 21:23 02/21/22 21:21 02/21/22 21:17 02/21/22 21:16 02/21/22 21:11 02/21/22 21:06 02/21/22 21:01 02/21/22 21:00 02/21/22 20:56 02/21/22 20:51 02/21/22 20:46 02/21/22 20:45 02/21/22 20:41 02/21/22 20:36 02/21/22 20:31 02/21/22 20:30 02/21/22 20:26 02/21/22 20:21 02/21/22 20:16 02/21/22 20:11 02/21/22 20:06 02/21/22 20:01 02/21/22 20:01 02/21/22 20:01 02/21/22 19:56 02/21/22 19:51 02/21/22 19:46 02/21/22 19:41 02/21/22 19:40 02/21/22 19:36 02/21/22 19:31 02/21/22 19:31 02/21/22 19:31 02/21/22 19:26 02/21/22 19:21 02/21/22 19:16 02/21/22 19:16 02/21/22 19:16 02/21/22 19:11 02/21/22 19:06 02/21/22 19:01 02/21/22 19:01 02/21/22 19:01 02/21/22 18:56 02/21/22 18:51 02/21/22 18:46 02/21/22 18:46 02/21/22 18:46 02/21/22 18:41 02/21/22 18:36 02/21/22 18:31 02/21/22 18:26 02/21/22 18:21 02/21/22 18:16 <Ariadna Lara MD, FACOG - Last Filed: 02/22/22 09:03> Co-Signing Physician Notes Resident Physician Supervision Note: I interviewed and examined the patient. Discussed with and agree with findings and plan as documented in the note. Any exceptions or clarifications are listed here: [None] Documented By: Ariadna Lara MD, FACOG Resident Activity Tracking <Erum Valadez, - Last Filed: 02/22/22 06:46> Resident Involvement: Resident Care Provided Care Provided: OB Delivery
[2022-02-22 07:28] LABS: Hematocrit (blood only) 33.4 % (34.1-44.9); Mean Corpuscular Hemoglobin 26.7 pg (25.0-34.0); Mean Corpuscular Hgb Conc 32.9 g/dL (32.0-36.0); Mean Corpuscular Volume 81.1 fL (80.0-100.0); Mean Platelet Volume 9.7 fL (9.4-12.3); Platelet Count 320 K/uL (130-400); RDW Coefficient of Variation 13.9 % (11.5-14.5); Red Blood Count 4.12 M/uL (3.93-5.22); White Blood Count 13.16 K/ul (4.8-10.8)
[2022-02-22] MEDS: PRENATAL VITAMIN 1 TAB PO SCH (07:50)
[2022-02-22] MEDS: DOCUSATE SODIUM 100 MG CAP PO SCH ×2 (07:50→20:31)
[2022-02-22] MEDS ORDERED: bisacodyL 5 MG TABEC PO SCH (20:00)
[2022-02-23] MEDS: IBUPROFEN 600 MG TAB PO PRN ×3 (04:15→08:31)
--- NOTE | 2022-02-23 06:14 | Obstetrical Progress Note ---
Date of Service <Erum Valadez DO - Last Filed: 02/23/22 06:37> February 23, 2022 Assessment & Plan <Erum Erazo DO Allyson - Last Filed: 02/23/22 06:37> (1) care following vaginal delivery: Patient is PPD 2 s/p and doing well. - Eating well, voiding well, ambulating well - Vitals reviewed and within normal limits - Pain well controlled with analgesics - OOB, ambulation, diet progression as tolerated - Blood type: O+, GBS neg, rubella immune - Plan to discharge today - After discharge, 6 week follow up with Dr. Ponce <Michelle Matos MD, FACOG - Last Filed: 02/23/22 07:02> (1) care following vaginal delivery: Subjective <Erum Erazo DO Allyson - Last Filed: 02/23/22 06:37> Patient is a 36 yo female who is now PPD #2 following spontaneous vaginal delivery at 39 weeks. Reports feeling well this morning. She reports abdominal cramping and 7-8/10 pain without medication and 2-3/10 pain well managed on an algesics. Voiding without issue. Tolerating regular meals overnight and able to ambulate some. She has passed gas but no bowel movements. Persistent lochia with some improvement this morning. Currently breast feeding with some latching difficulties. Pt is going to talk with nursing staff before d/c for advice. Review of Systems Denies fever, chills, sweats. Denies SOB, difficulty breathing, chest pain, palpitations, and chest pressure. Denies breast pain. Denies dysuria. Denies headache or changes in vision. Physical Exam <Erum Valadez DO - Last Filed: 02/23/22 06:37> General: Alert and oriented. No acute distress. CV: Regular rate and rhythm. No murmurs. Respiratory: CTA bilaterally. No rhonchi, wheezes, or crackles. No increased work of breathing. Abdomen: Positive bowel sounds. Soft, nontender, non distended. Uterus: Fundus firm and palpable 3 cm below the umbilicus. Lower extremities: No LE edema. No deep calf pain. Roberto's negative bilaterally. Results & Data ([facility]) <Erum Valadez DO - Last Filed: 02/23/22 06:37> Vital Signs (Past 12 Hours) Vital Signs Temp Pulse Resp BP Pulse Ox O2 Del Method 02/23/22 00:12 37.0 C 80 16 127/84 95 Room Air 02/23/22 00:12 Room Air 02/22/22 20:33 36.7 C 81 20 130/81 95 Room Air <Michelle Matos MD, FACOG - Last Filed: 02/23/22 07:02> Co-Signing Physician Notes Resident Physician Supervision Note: I interviewed and examined the patient. Discussed with Dr. Valadez and agree with findings and plan as documented in the note. Any exceptions or clarifications are listed here: doing well, plan d/c, instructions given. Documented By: Michelle Matos MD, FACOG Resident Activity Tracking <Erum Valadez DO - Last Filed: 02/23/22 06:37> Resident Involvement: Resident Care Provided Care Provided: OB Delivery
[2022-02-23 06:23] LABS: Hematocrit (blood only) 31.1 % (34.1-44.9); Hemoglobin 10.3 g/dl (12.0-16.0)
[2022-02-23] MEDS: PRENATAL VITAMIN 1 TAB PO SCH (08:31)
[2022-02-23] MEDS: DOCUSATE SODIUM 100 MG CAP PO SCH (08:31)
[2022-02-23] MEDS ORDERED: bisacodyL 10 MG SUPP PR PRN (22:07)
== END 2022-02-23 12:30 | disposition home or self-care (01) | DRG 807 ==
LOC: 4S1 07:38 → 4E2 02-22 01:29
DX: Z37.0 Single live birth; Z3A.39 39 weeks gestation of pregnancy; O70.0 First degree perineal laceration during delivery; Z86.16 Personal history of COVID-19; Z88.0 Allergy status to penicillin; O09.523 Supervision of elderly multigravida, third trimester